=== PATIENT | female | born 1985 | race Caucasian/White ===

== ENCOUNTER 2018-09-12 11:05 | Day surgery (SDC) | payer MEDICAID ==
[2018-09-12] MEDS: LACTATED RINGER'S 1,000 ML IV ×2 (12:16→13:24)
[2018-09-12 12:35] LABS: ADD MAN DIFF? NO
[2018-09-12 12:46] LABS: WHITE BLOOD COUNT 6.8 10^3/ul (4.8-10.8)
[2018-09-12 12:46] LABS: BASOPHIL # 0.1 10^3/ul (0.0-0.1); BASOPHILS % 0.7 % (0.0-2.0); EOSINOPHILS # 0.2 10^3/ul (0.0-0.5); EOSINOPHILS % 2.8 % (0.0-7.0); HEMATOCRIT 41.5 % (37.0-47.0); HEMOGLOBIN 14.3 g/dl (12.0-16.0); LYMPHOCYTES # 1.6 10^3/ul (0.8-2.9); LYMPHOCYTES % 23.2 % (15.0-51.0); MEAN CORPUSCULAR HEMOGLOBIN 28.9 pg (29.0-33.0); MEAN CORPUSCULAR HGB CONC 34.5 g/dl (32.0-37.0); MEAN CORPUSCULAR VOLUME 83.8 fl (82.0-101.0); MEAN PLATELET VOLUME 10.6 fl (7.4-10.4); MONOCYTE # 0.3 10^3/ul (0.3-0.9); MONOCYTES % 4.9 % (0.0-11.0); NEUTROPHIL # 4.6 10^3/ul (1.6-7.5); NEUTROPHILS % 68.3 % (39.0-77.0); PLATELET COUNT 267 10^3/UL (140-415); RED BLOOD COUNT 4.95 10^6/ul (4.20-5.40); RED CELL DISTRIBUTION WIDTH 11.9 % (11.5-14.5)
[2018-09-12] MEDS ORDERED: GLYCOPYRROLATE 0.4 MG INJ (14:29)
[2018-09-12] MEDS ORDERED: PROPOFOL 20 ML (14:29)
[2018-09-12] MEDS ORDERED: NEOSTIGMINE 3 MG/3 ML SYRINGE (14:29)
[2018-09-12] MEDS ORDERED: CEFAZOLIN 1 GM INJ (14:29)
[2018-09-12] MEDS ORDERED: ROCURONIUM 50 MG INJ (14:29)
[2018-09-12] MEDS ORDERED: ALBUTEROL 0.083% (NEB) 2.5 MG/3 ML AMP HHN (14:30)
[2018-09-12] MEDS ORDERED: MEPERIDINE 25 MG INJ IV (14:30)
[2018-09-12] MEDS ORDERED: ONDANSETRON 4 MG INJ (14:30)
[2018-09-12] MEDS ORDERED: ROPIVACAINE 0.5 % 30 ML VIAL (14:30)
[2018-09-12] MEDS ORDERED: MIDAZOLAM 1 MG/ML 2 ML INJ IV (14:30)
[2018-09-12] MEDS ORDERED: MIDAZOLAM 1 MG/ML 2 ML INJ (14:30)
[2018-09-12] MEDS ORDERED: EPHEDrine 25 MG/5 ML SYG IV (14:30)
[2018-09-12] MEDS ORDERED: OXYCODONE/ACETAMINOPHEN (5/325) TAB PO (14:30)
[2018-09-12] MEDS ORDERED: DIPHENHYDRAMINE 50 MG INJ IV (14:30)
[2018-09-12] MEDS ORDERED: IPRATROPIUM (NEB) 0.5 MG/2.5 ML AMP HHN (14:30)
[2018-09-12] MEDS ORDERED: DEXAMETHASONE 4 MG/ML 5 ML INJ (14:30)
[2018-09-12] MEDS ORDERED: FENTAnyl 50 MCG/ML VIAL IV ×2 (14:30)
[2018-09-12] MEDS ORDERED: hydrALAzine 20 MG INJ IV (14:30)
[2018-09-12] MEDS ORDERED: TRIMETHOBENZAMIDE 100 MG/ML VIAL IM (14:30)
[2018-09-12] MEDS ORDERED: FENTAnyl 50 MCG/ML VIAL (14:30)
[2018-09-12] MEDS ORDERED: HYDROmorphONE 1 MG/5 ML IV SYRINGE IV ×3 (14:30)
[2018-09-12] MEDS ORDERED: LABETALOL HCL 20MG INJ IV (14:30)
[2018-09-12] MEDS: FENTAnyl 50 MCG/ML VIAL IV (16:37)
[2018-09-12] MEDS: ONDANSETRON 4 MG INJ IV (17:15)
[2018-09-12] MEDS: OXYCODONE/ACETAMINOPHEN (5/325) TAB PO (17:16)
== END 2018-09-12 18:00 | disposition home or self-care (01) ==
LOC: SDS 11:05
DX: Z30.2 Encounter for sterilization (principal); N83.8 Other noninflammatory disorders of ovary, fallopian tube and broad ligament
CPT/HCPCS: 58670; 85025; 86850; 86900; 86901; 88305